=== PATIENT | female | born 1990 | race African-American/Black ===

== ENCOUNTER 2016-11-15 07:42 | Emergency (ER) | payer OTHER ==
--- NOTE | ~2016-11-15 | CR63 ---
[facility] A Service of [facility] & [facility] RADIOLOGY TEXT RESULTS PATIENT: CHRISTOPHER PETERSON LOCATION: [facility] : [birth year] UNIT #: [id number] AGE: [address]: Vijay Coburn MD SEX: F ORDER DR: [id number] [facility] [address] [place], [place] [address] [id number] E MR#: [id number] Acc #: [id number] NAME: CHRISTOPHER PETERSON : 1990 SEX: F STUDY DATE/TIME: 11/15/2016 7:23 UNIT: [facility] ROOM: STUDY DESCRIPTION: CR Chest 2 View Attending Physician: Vijay Coburn M.D. Ordering Physician: Vijay Coburn M.D. Primary Care Physician: Primary Care Physician No MEDICAL IMAGING REPORT This report is preliminary unless electronic signature is present EXAM Chest 2 views HISTORY Cough. FINDINGS PA and lateral radiographs of the chest are presented. No comparisons. Heart and mediastinum are normal in size and contour. The lungs are well inflated and clear. No evidence of acute infectious or inflammatory disease. No pleural effusion or pneumothorax. No suspicious nodule. The bony structures are unremarkable. Visualized bowel gas pattern in upper abdomen normal. Dictated by... Cayden Remy M.D. THIS IS AN ELECTRONICALLY VERIFIED REPORT Cayden Remy M.D. at 11/17/2016 8:22 PM LUIS/becca TD: 11/15/2016 09:04 JOB #: [id number] MEDICAL IMAGING REPORT COPY
[2016-11-15 07:38] LABS: INFLUENZA A NEG (NEG); INFLUENZA B NEG (NEG)
== END 2016-11-15 08:07 | disposition home or self-care (01) ==
LOC: CED 07:42
PROVIDERS: Emergency Medicine
DX: J06.9 Acute upper respiratory infection, unspecified (principal)
CPT/HCPCS: 71020; 84703; 87651; 87804; 99283

== ENCOUNTER 2016-11-18 23:18 | Emergency (ER) | payer OTHER | END 2016-11-18 23:20 | disposition home or self-care (01) | LOC: CFTX 23:18 | DX: B34.9 Viral infection, unspecified (principal); J20.9 Acute bronchitis, unspecified; J06.9 Acute upper respiratory infection, unspecified; J04.0 Acute laryngitis; F17.210 Nicotine dependence, cigarettes, uncomplicated | CPT/HCPCS: 99282 ==